=== PATIENT | female | born 1955 | race Caucasian/White ===

== ENCOUNTER → 2020-05-13 | Outpatient (CLI) | payer OTHER ==
[~2020-05-13] VITALS: Ht 167.6 cm; Wt 59.0 kg
[~2020-05-13] MED LIST: ADULT ASPIRIN R81 MG PO; B-125000 MC1 SUBLING; CALCIUM500 MG PO; D3-200050 MCG PO; FISH OIL 1,0001 EAC9 PO; MIRALAX119 GM PO; NEURONTIN100 MG PO; PRILOSEC OTC20 MG PO; PROBIOTIC1 EAC7 PO; SUPER THERAVIT1 EACH PO; SYNTHROID125 MC1 PO; TRIAMTERENE/HCT1 CA1 PO; TYLENOL PM EX-1 EACH PO
[2020-05-13 13:16] VITALS: BP 151/91
--- NOTE | 2020-05-13 13:36 | NUR ---
Pain Clinic Assessment: 1. History of Osteoarthritis: History of Rheumatoid Arthritis: N/A 2. Height: 5 ft. 6 in. 167.6 cm. Weight: 130.0 lb. oz. 58.968 kg. Patient's BMI: 21.0 3. Vital Signs: BP: 151/91 Pulse: 79 Resp: 16 Temp: 02 Sat: 99 ECG Mon: 4. Pain Intensity: 5 5. Fall Risk: Dizziness: Needs help standing or walking: Fallen in the last 3 months: Fall risk comments: 6. Patient on Blood Thinner: None 7. History of Hypertension: N 8. Opioid Therapy greater than 6 weeks: N Opiate Contract Signed: 9. Risk Assessment Tool Provided: 10. Functional Assessment Tool: 11. Recreational Drug Use: Never Drug Type: Tobacco Use: Never Smoker Tobacco Type: Amount or Packs/day: How Many Years: Alcohol Use: Yes Frequency: Daily Quant: 1 TO 2
== END | disposition home or self-care (01) ==
LOC: PAIN 10:57
PROVIDERS: ATTEND Anesthesiology Pain Medicine
DX: M51.16 Intervertebral disc disorders with radiculopathy, lumbar region (principal); G89.29 Other chronic pain; Z98.890 Other specified postprocedural states; Z79.899 Other long term (current) drug therapy; Z90.710 Acquired absence of both cervix and uterus; Z88.0 Allergy status to penicillin

== ENCOUNTER → 2021-04-17 | Outpatient (CLI) | payer OTHER ==
[~2021-04-17] VITALS: Ht 167.6 cm; Wt 58.2 kg
[~2021-04-17] MED LIST changes: +CITRACAL + BON1 EACH PO; +CYCLOBENZAPRINE5 MG PO
[2021-04-17 13:50] VITALS: BP 106/72
--- NOTE | 2021-04-17 14:19 | NUR ---
Pain Clinic Assessment: 1. History of Osteoarthritis: DDD VETEBRAE History of Rheumatoid Arthritis: N/A 2. Height: 5 ft. 6 in. 167.6 cm. Weight: 128.4 lb. oz. 58.242 kg. Patient's BMI: 20.7 3. Vital Signs: BP: 106/72 Pulse: 77 Resp: 16 Temp: 02 Sat: 97 ECG Mon: 4. Pain Intensity: 4 5. Fall Risk: Dizziness: N Needs help standing or walking: N Fallen in the last 3 months: N Fall risk comments: 6. Patient on Blood Thinner: None 7. History of Hypertension: N 8. Opioid Therapy greater than 6 weeks: N Opiate Contract Signed: 9. Risk Assessment Tool Provided: 10. Functional Assessment Tool: 11. Recreational Drug Use: Never Drug Type: Tobacco Use: Never Smoker Tobacco Type: Amount or Packs/day: How Many Years: Alcohol Use: Yes Frequency: Daily Quant: 1
== END ==
LOC: PAIN 11:06
PROVIDERS: ATTEND Anesthesiology Pain Medicine
DX: M54.2 Cervicalgia (principal); Z88.0 Allergy status to penicillin; Z79.82 Long term (current) use of aspirin; Z79.899 Other long term (current) drug therapy

== ENCOUNTER → 2021-06-23 | Outpatient (CLI) | payer OTHER ==
[~2021-06-23] VITALS: Ht 167.6 cm; Wt 59.0 kg
[~2021-06-23] MED LIST changes: +CURCUMIN1 GM PO
[2021-06-23 10:05] VITALS: BP 110/76
--- NOTE | 2021-06-23 10:30 | NUR ---
Pain Clinic Assessment: 1. History of Osteoarthritis: DDD VETEBRAE History of Rheumatoid Arthritis: N/A 2. Height: 5 ft. 6 in. 167.6 cm. Weight: 130.0 lb. oz. 58.968 kg. Patient's BMI: 21.0 3. Vital Signs: BP: 110/76 Pulse: 72 Resp: 14 Temp: 02 Sat: 98 ECG Mon: 4. Pain Intensity: 4 5. Fall Risk: Dizziness: N Needs help standing or walking: N Fallen in the last 3 months: N Fall risk comments: 6. Patient on Blood Thinner: None 7. History of Hypertension: N 8. Opioid Therapy greater than 6 weeks: N Opiate Contract Signed: 9. Risk Assessment Tool Provided: 10. Functional Assessment Tool: 11. Recreational Drug Use: Never Drug Type: Tobacco Use: Never Smoker Tobacco Type: Amount or Packs/day: How Many Years: Alcohol Use: Yes Frequency: Quant:
== END | disposition home or self-care (01) ==
LOC: PAIN 07:03
PROVIDERS: ATTEND Anesthesiology Pain Medicine
DX: M79.18 Myalgia, other site (principal); M54.2 Cervicalgia; Z98.890 Other specified postprocedural states; Z79.899 Other long term (current) drug therapy; Z88.0 Allergy status to penicillin; Z88.8 Allergy status to other drugs, medicaments and biological substances